=== PATIENT | female | born 1955 | race Two or more races ===

== ENCOUNTER 2018-08-22 09:37 | Emergency (ER) | payer OTHER ==
[~2018-08-22] VITALS: Ht 154.9 cm; Wt 64.2 kg
[2018-08-22] MEDS ORDERED: ONDANSETRON ODT 4 MG ONE (10:18)
[2018-08-22] MEDS ORDERED: MECLIZINE CHEWABLE 25 MG TAB ONE (10:18)
[2018-08-22] MEDS ORDERED: MECLIZINE CHEWABLE 25 MG TAB PO ONE (10:30)
[2018-08-22] MEDS ORDERED: ONDANSETRON ODT 4 MG PO ONE (10:30)
[2018-08-22 10:43] LABS: ALANINE AMINOTRANSFERASE 17 U/L (12-78); ALBUMIN 3.4 g/dL (3.4-5.0); ANION GAP 5 mmol/L (5-15); CHLORIDE 115 mmol/L (98-107); CREATININE 1.08 mg/dL (0.55-1.02)
[2018-08-22 10:45] LABS: ALKALINE PHOSPHATASE 85 U/L (45-117); BILIRUBIN,TOTAL 0.5 mg/dL (0.2-1.0); TOTAL PROTEIN 6.4 g/dL (6.4-8.2)
--- NOTE | 2018-08-22 10:46 | NUR ---
lab to have pt re-drawn
[2018-08-22 11:15] LABS: BASOPHILS # (AUTO) 0.01 x10^3/uL (0-0.1); BASOPHILS % (AUTO) 0 % (0-1); EOSINOPHILS # (AUTO) 0.02 x10^3/uL (0-0.4); EOSINOPHILS % (AUTO) 0 % (1-7); LYMPHOCYTES # (AUTO) 0.82 x10^3/uL (1-3.4); LYMPHOCYTES % (AUTO) 19 % (22-44); MD NO; MEAN CORPUSCULAR HEMOGLOBIN 29.4 pg (27.0-34.8); MEAN CORPUSCULAR HGB CONC 32.8 g/dL (32.4-35.8); MEAN CORPUSCULAR VOLUME 89.5 fL (80-100); MEAN PLATELET VOLUME 8.1 fL (7.4-10.4); MONOCYTES # (AUTO) 0.19 x10^3/uL (0.2-0.8); MONOCYTES % (AUTO) 4 % (2-9); NEUTROPHILS # (AUTO) 3.37 x10^3/uL (1.8-6.8); NEUTROPHILS % (AUTO) 76 % (42-75); PLATELET COUNT 142 x10^3/uL (130-400); RED BLOOD COUNT 4.72 x10^6/uL (3.82-5.3)
--- NOTE | 2018-08-22 11:43 | NUR ---
PATIENT AMBULATED DOWN THE SALE[facility] TO THE RESTROOM WITH A STEADY GATE, FAMILY MEMBERS ASSISTING AT HER SIDE.
[2018-08-22 11:54] VITALS: BP 165/79
[2018-08-22] MEDS ORDERED: ACETAMINOPHEN 500 MG TABLET PO ONE (12:00)
[2018-08-22] MEDS ORDERED: ACETAMINOPHEN 500 MG TABLET ONE (12:23)
[2018-08-22] MEDS ORDERED: IBUPROFEN 200 MG TABLET PO ONE (13:30)
== END 2018-08-22 14:04 ==
LOC: ED 10:10
DX: R42 Dizziness and giddiness (principal); R51 Headache; I10 Essential (primary) hypertension; G40.909 Epilepsy, unspecified, not intractable, without status epilepticus
CPT/HCPCS: 36415; 70450; 80053; 85025; 93005; 99284; Q0162

== ENCOUNTER 2020-01-14 21:02 | Emergency (ER) | payer OTHER ==
[~2020-01-14] VITALS: Ht 152.4 cm; Wt 61.5 kg
[2020-01-14] MEDS ORDERED: ASPIRIN 81 MG TABLET CHEW PO ONE (21:30)
[2020-01-14] MEDS ORDERED: SODIUM CHLORIDE FLUSH 10ML SYR IVF ONE (21:30)
[2020-01-14] MEDS ORDERED: ASPIRIN 81 MG TABLET CHEW ONE (21:32)
[2020-01-14 21:51] LABS: BASOPHILS # (AUTO) 0.09 x10^3/uL (0-0.1); BASOPHILS % (AUTO) 2 % (0-1); EOSINOPHILS # (AUTO) 0.06 x10^3/uL (0-0.4); EOSINOPHILS % (AUTO) 2 % (1-7); LYMPHOCYTES # (AUTO) 1.32 x10^3/uL (1-3.4); LYMPHOCYTES % (AUTO) 31 % (22-44); MD NO; MEAN CORPUSCULAR HEMOGLOBIN 30.4 pg (27.0-34.8); MEAN PLATELET VOLUME 8.4 fL (7.4-10.4); MONOCYTES # (AUTO) 0.35 x10^3/uL (0.2-0.8); MONOCYTES % (AUTO) 8 % (2-9); NEUTROPHILS # (AUTO) 2.38 x10^3/uL (1.8-6.8); NEUTROPHILS % (AUTO) 57 % (42-75); PLATELET COUNT 150 x10^3/uL (130-400); RED BLOOD COUNT 4.38 x10^6/uL (3.82-5.3); RED CELL DISTRIBUTION WIDTH 13.3 % (9.6-15.2)
[2020-01-14 22:00] LABS: ALANINE AMINOTRANSFERASE 21 U/L (12-78); ALBUMIN 3.8 g/dL (3.4-5.0); ANION GAP 8 mmol/L (5-15); CALCIUM 9.1 mg/dL (8.5-10.1); CHLORIDE 110 mmol/L (98-107)
[2020-01-14 22:04] LABS: ALKALINE PHOSPHATASE 82 U/L (45-117); BILIRUBIN,TOTAL 0.2 mg/dL (0.2-1.0); TOTAL PROTEIN 6.7 g/dL (6.4-8.2); TROPONIN I < 0.015 ng/mL (0.000-0.045)
--- NOTE | 2020-01-14 22:05 | NUR ---
Pt alert and resting on gurney. NAD. Pt's daughter reports 2 weeks of chest pain and SOB. No cardiac hx. Pt in gown and placed on full monitors. PIV placed. Pt medicated per SEP. Labs drawn and xay completed. Call light at bedside.
--- NOTE | 2020-01-14 22:18 | NUR ---
Pt resting on abner. NAD. Pt reports improvement in pain.
--- NOTE | 2020-01-14 22:19 | NUR ---
PA at bedside.
[2020-01-14 22:58] VITALS: BP 130/82
--- NOTE | 2020-01-14 22:58 | NUR ---
Pt d/c'd to home care. Pt alert, oriented and ambulatory. Pt educated on home care, OTC meds, RX's and follow-up. Pt VU. Pt ambulated out of ER.
== END 2020-01-14 23:00 | disposition home or self-care (01) ==
LOC: ED 22:50
DX: R07.89 Other chest pain (principal); K08.89 Other specified disorders of teeth and supporting structures; R06.02 Shortness of breath; R94.4 Abnormal results of kidney function studies; R94.31 Abnormal electrocardiogram [ECG] [EKG]
CPT/HCPCS: 36415; 71045; 80053; 83880; 84484; 85025; 93005; 99285

== ENCOUNTER 2020-03-16 14:32 | Emergency (ER) | payer OTHER ==
[~2020-03-16] VITALS: Ht 160 cm; Wt 57.8 kg
--- NOTE | 2020-03-16 15:05 | NUR ---
First contact with pt. Pt reports frontal TRUJILLO x4 days. Pt reports nausea with movement, no sensitivity to light or visual disturbances. Pt resting in bed, NADN. Continuous oxygen and BP monitors applied, all safety measures observed.
[2020-03-16] MEDS ORDERED: FLUT9.9S NAS (15:11)
[2020-03-16] MEDS ORDERED: LOSA25TA2 PO (15:11)
--- NOTE | 2020-03-16 15:17 | NUR ---
ERP at bedside to evaluate pt.
[2020-03-16 15:28] LABS: BASOPHILS # (AUTO) 0.01 x10^3/uL (0-0.1); BASOPHILS % (AUTO) 0 % (0-1); EOSINOPHILS # (AUTO) 0.01 x10^3/uL (0-0.4); EOSINOPHILS % (AUTO) 0 % (1-7); LYMPHOCYTES # (AUTO) 1.14 x10^3/uL (1-3.4); LYMPHOCYTES % (AUTO) 23 % (22-44); MD NO; MEAN CORPUSCULAR HEMOGLOBIN 30.2 pg (27.0-34.8); MEAN CORPUSCULAR HGB CONC 32.4 g/dL (32.4-35.8); MEAN CORPUSCULAR VOLUME 93.2 fL (80-100); MEAN PLATELET VOLUME 8.8 fL (7.4-10.4); MONOCYTES # (AUTO) 0.25 x10^3/uL (0.2-0.8); MONOCYTES % (AUTO) 5 % (2-9); NEUTROPHILS # (AUTO) 3.54 x10^3/uL (1.8-6.8); NEUTROPHILS % (AUTO) 71 % (42-75); PLATELET COUNT 135 x10^3/uL (130-400); RED BLOOD COUNT 4.74 x10^6/uL (3.82-5.3)
[2020-03-16 15:38] LABS: ALANINE AMINOTRANSFERASE 14 U/L (12-78); ALBUMIN 3.4 g/dL (3.4-5.0); ANION GAP 4 mmol/L (5-15); CALCIUM 9.6 mg/dL (8.5-10.1); CHLORIDE 108 mmol/L (98-107)
[2020-03-16 15:40] LABS: ALKALINE PHOSPHATASE 65 U/L (45-117); BILIRUBIN,TOTAL 0.4 mg/dL (0.2-1.0); TOTAL PROTEIN 6.6 g/dL (6.4-8.2)
--- NOTE | 2020-03-16 16:14 | NUR ---
Pt ambulatory to bathroom and back to bed without difficulty. Urine sample collected and sent to lab. Pt resting in bed, denies needs.
[2020-03-16 16:17] LABS: MICROSCOPIC NOT IND
[2020-03-16] MEDS ORDERED: MECLIZINE CHEWABLE 25 MG TAB PO ONE (17:00)
[2020-03-16] MEDS ORDERED: MECLIZINE CHEWABLE 25 MG TAB ONE (17:56)
--- NOTE | 2020-03-16 17:59 | NUR ---
TASK RN: MED ADMINISTERED PER ORDER.
[2020-03-16] MEDS ORDERED: MECL-101 PO (18:07)
--- NOTE | 2020-03-16 18:14 | NUR ---
Pt resting in bed talking with her daughter, denies needs.
[2020-03-16 18:37] VITALS: BP 150/83
== END 2020-03-16 18:38 | disposition home or self-care (01) ==
LOC: ED 16:54
DX: H81.23 Vestibular neuronitis, bilateral (principal); R53.1 Weakness; R51 Headache; I49.1 Atrial premature depolarization; I10 Essential (primary) hypertension; E78.5 Hyperlipidemia, unspecified
CPT/HCPCS: 36415; 70551; 80053; 81003; 85025; 93005; 99285